=== PATIENT | female | born 1950 | race African-American/Black ===

== ENCOUNTER 2019-10-27 16:33 | Emergency (ER) | payer OTHER ==
[~2019-10-27] VITALS: Ht 149.9 cm; Wt 70.3 kg
[~2019-10-27 16:33] MED LIST: AMARYL4 MG PO; AVAPRO 150 MG150 M1 PO; BLEPH-105 ML OPHTHALMIC; ERYTHROMYCIN E3.5 G3 OPHTHALMIC; GLUCOPHAGE1000 MG PO; HYDROCODONE-AP1 EAC6 PO; IBUPROFEN 800800 M1 PO; LOSARTAN-HCTZ1 EAC3 PO; NORCO 5-325 TA1 EACH PO; NORVASC10 MG PO; PAXIL 20 MG TAB20 MG PO; PAXIL CR12.5 MG PO; PRAVACHOL40 MG PO; PRED FORTE 1% EY5 M1 OP; PREDNISONE 20 M20 MG PO; PT DOES NOT KNOW; SIMVASTATIN40 MG PO; TRIAMTERENE-HC1 EAC1 PO; VALIUM5 MG PO
[2019-10-27 17:46] LABS: HEMATOCRIT 38.6 % (37.0-47.0); HEMOGLOBIN 13.2 gm/dL (12.0-15.0); MCH 30.5 pg (26.0-34.0); MCHC 34.2 g/dL (28.0-37.0); MCV 89.1 fL (80.0-100.0); RBC 4.33 mil/uL (4.20-5.00); RDW 14.3 % (10.5-14.5); WBC 6.9 thou/uL (4.0-11.0)
[2019-10-27 17:58] LABS: CALCIUM 8.2 mg/dL (8.5-10.1); CREATININE 0.9 mg/dL (0.6-1.0); POTASSIUM 3.4 mmol/L (3.5-5.1)
[2019-10-27 18:05] LABS: ALBUMIN 3.6 g/dL (3.4-5.0); TOTAL BILIRUBIN 0.2 mg/dL (<0.1-1.0); URIC ACID* 3.7 mg/dL (2.6-7.2)
[2019-10-27] MEDS ORDERED: PREDNISONE 20 M20 MG PO (18:21)
[2019-10-27] MEDS ORDERED: TRAMADOL 50 MG50 MG PO (18:21)
[2019-10-27 20:20] VITALS: BP 137/49
== END 2019-10-27 18:41 | disposition home or self-care (01) ==
LOC: ER 16:33
PROVIDERS: Emergency Medicine
DX: M25.571 Pain in right ankle and joints of right foot (principal); I10 Essential (primary) hypertension; E11.9 Type 2 diabetes mellitus without complications; Z98.82 Breast implant status; Z88.0 Allergy status to penicillin; Z88.6 Allergy status to analgesic agent